=== PATIENT | female | born 1960 | race Caucasian/White ===

== ENCOUNTER 2021-07-12 22:24 | Emergency (ER) | payer OTHER ==
[2021-07-12 23:58] LABS: Absolute Lymphocytes (CBC) 2.8 K/uL (0.7-4.9); Basophils % 0.5 % (0-1.3); Hematocrit 32.1 % (36.0-45.0); Lymphocytes % 27.4 % (15.3-44.8); MPV 8.4 fL (7.6-11.3); RBC Red Blood Cell Count 3.55 M/uL (3.86-4.86)
[2021-07-13 00:09] LABS: BUN Blood Urea Nitrogen 17 mg/dL (7-18); Bicarbonate 24 mmol/L (21-32); Glucose Level 113 mg/dL (74-106); Sodium Level 133 mmol/L (136-145)
--- NOTE | 2021-07-13 00:09 | EDPHYS ---
Physician Documentation [facility] Name: Katina Olmstead Age: 61 yrs Sex: Female : 1960 Arrival Date: 07/12/2021 Time: 22:31 Bed 5 Private MD: ED Physician Karri Sawyer HPI: 07/12 22:31 This 61 yrs old Female presents to ER via Unassigned with complaints of Head ps1 injury. 22:31 Patient states that she fell down unknown number of steps will going down stairs. She ps1 has a moderate size laceration to the right side of the head that was brought in by EMS pressure dressing. She additionally complains of right shoulder pain as well as right leg pain. No obvious signs of deformity. There is mild contusions localized to the anterior and posterior aspects of the right shoulder. Pain is rated as moderate. Maintains full range of motion.. Historical: - Allergies: 22:49 No Known Allergies; df1 - Home Meds: 22:49 None [Active]; df1 - PMHx: 22:49 None; df1 - PSHx: 22:49 None; df1 - Code Status:: Full code. - Immunization history:: Adult Immunizations up to date, Client reports having NOT received the Covid vaccine. - Social history:: Smoking status: Patient denies any tobacco usage or history of. ROS: 22:31 Constitutional: Negative for fever, chills, and weight loss, Eyes: Negative for injury, ps1 pain, redness, and discharge, ENT: Negative for injury, pain, and discharge, Neck: Negative for injury, pain, and swelling, Cardiovascular: Negative for chest pain, palpitations, and edema, Respiratory: Negative for shortness of breath, cough, wheezing, and pleuritic chest pain, Abdomen/GI: Negative for abdominal pain, nausea, vomiting, diarrhea, and constipation, Neuro: Negative for headache, weakness, numbness, tingling, and seizure. 22:31 Skin: Positive for laceration(s), of the right quaker. Exam: 22:31 Constitutional: This is a well developed, well nourished patient who is awake, alert, ps1 and in no acute distress. 22:31 Cardiovascular: Regular rate and rhythm. No gallops, murmurs, or rubs. Normal PMI, no JVD. No pulse deficits. Respiratory: Lungs have equal breath sounds bilaterally, clear to auscultation and percussion. No rales, rhonchi or wheezes noted. No increased work of breathing, no retractions or nasal flaring. Abdomen/GI: Soft, non-tender, with normal bowel sounds. No distension or tympany. No guarding or rebound. No evidence of tenderness throughout. Skin: Warm, dry with normal turgor. Normal color with no rashes, no lesions, and no evidence of cellulitis. Neuro: Awake and alert, GCS 15, oriented to person, place, time, and situation. Cranial nerves II-XII grossly intact. Sensory grossly intact. 22:31 Head/face: Noted is a laceration(s), that is linear, 5 cm(s), of the right quaker. 22:31 Chest/axilla: Inspection: ecchymosis, that is moderate, of the right lateral posterior chest and right lateral anterior chest 22:31 Musculoskeletal/extremity: Extremities: grossly normal except: noted in the right leg: pain, ROM: no acute changes, Circulation is intact in all extremities. Sensation intact. Vital Signs: 22:43 BP 148 / 120; Pulse 79; Resp 20; Temp 97.8(TE); Pulse Ox 100% on R/A; Weight 81.65 kg; df1 Height 4 ft. 10 in. (147.32 cm); Pain 10/10; 22:50 BP 140 / 87; Pulse 84; Resp 18; Pulse Ox 100% on R/A; Pain 4/10; wg 07/13 00:35 BP 132 / 80; Pulse 78; Resp 18; Pulse Ox 99% on R/A; Pain 2/10; wg 07/12 22:43 Body Mass Index 37.62 (81.65 kg, 147.32 cm) df1 Gisele Coma Score: 07/12 22:50 Eye Response: spontaneous(4). Verbal Response: oriented(5). Motor Response: obeys wg commands(6). Total: 15. Trauma Score (Adult): 22:50 Eye Response: spontaneous(1); Verbal Response: oriented(1); Motor Response: obeys commands(2); Systolic BP: > 89 mm Hg(4); Respiratory Rate: 10 to 29 per min(4); Gisele Score: 15; Trauma Score: 12 Laceration: 07/13 00:05 Wound Repair of 3cm ( 1.2in ) subcutaneous laceration to right quaker. Distal ps1 neuro/vascular/tendon intact. Anesthesia: Local anesthetic administered with 1% lidocaine. Skin closed with 2 Perry using simple sutures and sterile technique. Patient tolerated well. MDM: 07/12 22:36 Patient medically screened. ps1 07/13 00:05 Differential diagnosis: Contusion of Laceration of Intracranial bleed-. Data reviewed: ps1 vital signs, lab test result(s), radiologic studies, and as a result, I will discharge patient. Counseling: I had a detailed discussion with the patient and/or guardian regarding: the historical points, exam findings, and any diagnostic results supporting the discharge/admit diagnosis, lab results, radiology results, the need for outpatient follow up, staple removal. 07/12 22:35 Order name: Basic Metabolic Panel; Complete Time: 00:11 ps1 07/12 22:35 Order name: CBC with Diff; Complete Time: 00:04 ps1 07/12 22:35 Order name: CT Head C Spine ps1 07/12 22:35 Order name: XRAY Chest (1 view) ps1 07/12 22:35 Order name: XRAY Pelvis ps1 07/12 22:35 Order name: Labs collected and sent; Complete Time: 23:36 ps1 Administered Medications: No medications were administered Disposition Summary: 07/13/21 00:09 Discharge Ordered Location: Home ps1 Problem: new ps1 Symptoms: have improved ps1 Condition: Stable ps1 Diagnosis - Head laceration ps1 - right shoulder contusion ps1 - right leg pain ps1 Followup: ps1 - With: Private Physician - When: 7 - 10 days - Reason: Recheck today's complaints, Continuance of care, Staple/Suture removal, Re-evaluation by your physician Followup: ps1 - With: Emergency Department - When: As needed - Reason: Trouble breathing, Worsening of condition Discharge Instructions: - Discharge Summary Sheet ps1 - Laceration Care, Adult, [id number] ps1 Forms: - Medication Reconciliation Form ps1 - Thank You Letter ps1 - Antibiotic Education ps1 - Prescription Opioid Use ps1 Prescriptions: - methocarbamol 750 mg Oral tablet - take 1 tablet by ORAL route every 4 hours; 20 tablet; Refills: 0, Product ps1 Selection Permitted - Anaprox DS 550 mg Oral Tablet - take 1 tablet by ORAL route every 12 hours As needed; 20 tablet; Refills: 0, ps1 Product Selection Permitted Signatures: Dispatcher Karri Porter MD MD ps1 Tiburcio Hernandez RN wg Angelica Rosenberg df1
--- NOTE | 2021-07-13 00:09 | ER ---
Nurse's Notes [facility] Name: Katina Olmstead Age: 61 yrs Sex: Female : 1960 Arrival Date: 07/12/2021 Time: 22:31 Bed 5 Private MD: Diagnosis: Head laceration;right shoulder contusion;right leg pain Presentation: 07/12 22:43 Onset of symptoms was July 12, 2021 at 22:00. df1 22:43 Method Of Arrival: EMS: [facility] df1 22:43 Acuity: JADON 2 df1 22:50 Note EMS states, pt drank 6 beers today. df1 22:50 Chief complaint: EMS states: Pt found at bottom of stairwell after fall. Unknown how wg far she fell. Unknown LOC. Per EMS, large avulsion noted to back right head. Dressing to head soaked in blood. Pt states 10/10 pain to head. Coronavirus screen: Vaccine status: Patient reports being unvaccinated. Client denies travel out of the [place] in the last 14 days. At this time, the client does not indicate any symptoms associated with coronavirus-19. The client denies any previous COVID testing. Care prior to arrival: None. Ebola Screen: Patient negative for fever greater than or equal to 101.5 degrees Fahrenheit, and additional compatible Ebola Virus Disease symptoms Patient denies exposure to infectious person. No symptoms or risks identified at this time. Mechanism of Injury: Fall from standing position. Initial Sepsis Screen: Does the patient meet any 2 criteria? No. Patient's initial sepsis screen is negative. Does the patient have a suspected source of infection? No. Patient's initial sepsis screen is negative. Activity prior to arrival: 6 beers. Risk Assessment: Do you want to hurt yourself or someone else? Patient reports no desire to harm self or others. Triage Assessment: 22:51 General: Appears distressed, uncomfortable, Behavior is calm, cooperative, anxious. df1 Pain: Complains of pain in scalp. Trauma Activation: Alert Physician: ED Physician; Name: Vj; Notified At: ; Arrived At: Physician: General Surgeon; Name: ; Notified At: ; Arrived At: Physician: Radiology; Name: ; Notified At: ; Arrived At: Physician: Respiratory; Name: ; Notified At: ; Arrived At: Physician: Lab; Name: ; Notified At: ; Arrived At: Historical: - Allergies: 22:49 No Known Allergies; df1 - Home Meds: 22:49 None [Active]; df1 - PMHx: 22:49 None; df1 - PSHx: 22:49 None; df1 - Code Status:: Full code. - Immunization history:: Adult Immunizations up to date, Client reports having NOT received the Covid vaccine. - Social history:: Smoking status: Patient denies any tobacco usage or history of. Screenin:50 Fall risk At risk due to injury, prior history of falls. wg 22:51 Abuse screen: Denies threats or abuse. Nutritional screening: No deficits noted. df1 Tuberculosis screening: No symptoms or risk factors identified. Fall Risk No secondary diagnosis (0 pts). Ambulatory Aid- None/Bed Rest/Nurse Assist (0 pts). Gait- Normal/Bed Rest/Wheelchair (0 pts) Mental Status- Oriented to own ability (0 pts). Primary Survey: 22:50 NO uncontrolled hemorrhage observed. A: The patient is alert. Airway: patent, No wg supplemental oxygen in use on arrival. Oral cavity: clear, gag reflex present, Trachea midline. Breathing/Chest: Respiratory pattern: regular, Respiratory effort: spontaneous, unlabored, Breath sounds: clear, Chest inspection: symmetrical rise and fall of the chest. Circulation: Cardiac rhythm: sinus rhythm Pulses: palpable right radial artery, right posterior tibial artery, left radial artery and left posterior tibial artery. Disability Alert. Exposure/Environment: All clothing and personal items were removed. Assessment: 22:50 General: Appears uncomfortable, well developed, Smells of alcohol. Neuro: Level of wg Consciousness is awake, alert, obeys commands, Oriented to person, place, time, situation, Appropriate for age Boiler Operator are equal bilaterally Moves all extremities. Speech is normal, Slightly slurred, similar seen in intoxicated people. Cardiovascular: No deficits noted. Respiratory: No deficits noted. Airway is patent Trachea midline Respiratory effort is even, unlabored, Respiratory pattern is regular, symmetrical. GI: No deficits noted. : No deficits noted. Injury Description: Per EMS there is an avulsion to the right/rear area of head, wrapped with gauge. Dr. Sawyer at bedside and will unwrap after scans. 10/16 00:35 Reassessment: No changes from previously documented assessment. Patient is alert, wg oriented x 3, equal unlabored respirations, skin warm/dry/pink. Head cleaned up. Two viraj look clean and dry. Pt ambulated to BR with little assistance. with patient. Patient states symptoms have improved. Vital Signs: 07/12 22:43 BP 148 / 120; Pulse 79; Resp 20; Temp 97.8(TE); Pulse Ox 100% on R/A; Weight 81.65 kg; df1 Height 4 ft. 10 in. (147.32 cm); Pain 10/; 22:50 BP 140 / 87; Pulse 84; Resp 18; Pulse Ox 100% on R/A; Pain 4/10; wg 07/13 00:35 BP 132 / 80; Pulse 78; Resp 18; Pulse Ox 99% on R/A; Pain 2/10; wg 07/12 22:43 Body Mass Index 37.62 (81.65 kg, 147.32 cm) df1 Gisele Coma Score: 07/12 22:50 Eye Response: spontaneous(4). Verbal Response: oriented(5). Motor Response: obeys wg commands(6). Total: 15. Trauma Score (Adult): 22:50 Eye Response: spontaneous(1); Verbal Response: oriented(1); Motor Response: obeys wg commands(2); Systolic BP: > 89 mm Hg(4); Respiratory Rate: 10 to 29 per min(4); Gisele Score: 15; Trauma Score: 12 ED Course: 22:31 Patient arrived in ED. tt3 22:31 Karri Sawyer MD is Attending Physician. ps1 22:33 Tiburcio Hernandez, MARGO is Primary Nurse. wg 22:49 Triage completed. df1 22:49 XRAY Chest (1 view) In Process Unspecified. EDMS 22:50 XRAY Pelvis In Process Unspecified. EDMS 22:50 Patient maintains SpO2 saturation greater than 95% on room air. wg 22:52 Arm band placed on right wrist. df1 22:52 Patient has correct armband on for positive identification. Placed in gown. Bed in low df1 position. Call light in reach. Side rails up X 1. Adult w/ patient. 23:00 CT Head C Spine In Process Unspecified. EDMS 23:00 Missed attempt(s): 22 gauge in right forearm. wg 23:36 Basic Metabolic Panel Sent. wg 23:36 CBC with Diff Sent. 07/13 01:17 IV discontinued, intact, bleeding controlled, No redness/swelling at site. Pressure wg dressing applied. Administered Medications: No medications were administered Outcome: 00:09 Discharge ordered by MD. ps1 01:17 Discharged to home ambulatory, with significant other. wg 01:17 Condition: stable 01:17 Discharge instructions given to patient, significant other, Instructed on discharge instructions, follow up and referral plans. no drinking with medication, medication usage, Demonstrated understanding of instructions, follow-up care, medications. 01:18 Patient left the ED. wg Signatures: Dispatcher [employer] EDMS Karri Sawyer MD MD ps1 Trim, New tt3 Tiburcio Hernandez, MARGO Angelica Rosenberg df1 Corrections: (The following items were deleted from the chart) 07/12 22:50 22:43 Chief complaint: EMS states: Pt found at bottom of stairwell after fall. Unknown df1 how far she fell. Unknown LOC. Per EMS, large avulsion noted to back right head. Dressing to head soaked in blood. Pt states 10/10 pain to head. df1 22:50 22:43 Coronavirus screen: Vaccine status: Patient reports being unvaccinated. Client df1 denies travel out of the [place] in the last 14 days. At this time, the client does not indicate any symptoms associated with coronavirus-19. The client denies any previous COVID testing. df1 23:39 23:20 General: Appears uncomfortable, well developed, Smells of alcohol, [facility] :39 23:20 Neuro: Level of Consciousness is awake, alert, obeys commands, Oriented to person, place, time, situation, Appropriate for age Boiler Operator are equal bilaterally Moves all extremities. Speech is normal, Slightly slurred, similar seen in intoxicated people. :39 23:22 Cardiovascular: No deficits noted. [facility] :39 23:22 Respiratory: No deficits noted. Airway is patent Trachea midline Respiratory wg effort is even, unlabored, Respiratory pattern is regular, symmetrical, :39 23:22 GI: No deficits noted. [facility] : 23:22 : No deficits noted. [facility] :39 23:22 Injury Description: Per EMS there is an avulsion to the right/rear area of head, wg wrapped with gauge. Dr. Zabala at bedside and will unwrap after scans. : 22:43 Ebola Screen: Patient negative for fever greater than or equal to 101.5 degrees wg Fahrenheit, and additional compatible Ebola Virus Disease symptoms Patient denies exposure to infectious person. No symptoms or risks identified at this time. df1 :40 22:43 Risk Assessment: Do you want to hurt yourself or someone else? Patient reports no wg desire to harm self or others. df1 :40 22:43 Initial Sepsis Screen: Does the patient meet any 2 criteria? No. Patient's wg initial sepsis screen is negative. Does the patient have a suspected source of infection? No. Patient's initial sepsis screen is negative. df1 :40 22:43 Coronavirus screen: Vaccine status: Patient reports being unvaccinated. Client wg denies travel out of the [place] in the last 14 days. At this time, the client does not indicate any symptoms associated with coronavirus-19. The client denies any previous COVID testing. df1 :40 22:43 Chief complaint: EMS states: Pt found at bottom of stairwell after fall. Unknown wg how far she fell. Unknown LOC. Per EMS, large avulsion noted to back right head. Dressing to head soaked in blood. Pt states 10/10 pain to head. df1 :40 23:20 Care prior to arrival: None. [facility] : 23:20 Mechanism of Injury: Fall from standing position. [facility] 23:20 Activity prior to arrival: 6 beers [facility] : 23:20 Trauma Activation: Alert; ED Physician Vj [facility] 23:23 NO uncontrolled hemorrhage observed [facility] : 23:23 A: The patient is alert. Airway: patent, No supplemental oxygen in use on arrival. Oral cavity: clear, gag reflex present, Trachea midline. 23:23 Breathing/Chest: Respiratory pattern: regular, Respiratory effort: spontaneous, wg unlabored, Breath sounds: clear, Chest inspection: symmetrical rise and fall of the chest, 23:23 Circulation: Cardiac rhythm: sinus rhythm Pulses: palpable right radial artery, wg right posterior tibial artery, left radial artery and left posterior tibial artery. 23:23 Disability Alert [facility] 23:23 Exposure/Environment: All clothing and personal items were removed. [facility] 23:23 [place] Score=15, Trauma Score=12, [facility] 23:23 GCS: 15, [facility] : 23:26 BP 140 / 87; Pulse 84bpm; Resp 18bpm; Pulse Ox 100% RA; Pain 4/10; [facility] 23:23 Fall risk At risk due to injury, prior history of falls, [facility] 23:23 Patient maintains SpO2 saturation greater than 95% on room air. [facility] 23:23 Missed attempt(s): 22 gauge in right forearm. [facility]
[2021-07-13 01:24] VITALS: TEMP 97.8
[2021-07-13 01:27] VITALS: BP 132/80; O2SAT 99
--- NOTE | 2021-07-13 07:31 | RAD REPORT ---
EXAM DESCRIPTION: RAD - Pelvis - 07/12/2021 10:51 pm CLINICAL HISTORY: BLUNT TRAUMA, fall downstairs COMPARISON: No comparisons TECHNIQUE: AP imaging of the pelvis was obtained. FINDINGS: No pelvic fracture identified. Pubic symphysis and SI joints are normal range. No hip join t or proximal femur abnormality seen. Soft tissues are unremarkable. IMPRESSION: Negative pelvis
--- NOTE | 2021-07-13 07:32 | RAD REPORT ---
EXAM DESCRIPTION: RAD - Chest Single View - 07/12/2021 10:51 pm CLINICAL HISTORY: BLUNT CHEST TRAUMA, fall down stairs COMPARISON: October 2018 TECHNIQUE: AP portable chest image was obtained 07/12/2021 10:51 pm . FINDINGS: Lung volumes are low. No pulmonary contusion identified. No acute lung parenchymal process seen. Cardiac silhouette is enlarged by shallow inspiration, portable technique and body habitus aff ects. Acute failure or volume overload are not suspected. No measurable pleural effusion and no pneumothorax. No acute bony abnormality seen. No acute aortic findings suspected. IMPRESSION: No acute cardiopulmonary process. Ongoing concerns for rib fracture can be addressed with dedicated imaging.
--- NOTE | 2021-07-13 15:09 | RAD REPORT ---
EXAM DESCRIPTION: CT - CTHCSPWOC - 07/13/2021 6:49 am COMPARISON: None. CLINICAL HISTORY: [facility] MAIN fall. head injury TECHNIQUE: Axial images were obtained from skull base to vertex without intravenous contrast. Imag es viewed on bone and brain windows. Multiplanar reformats were performed. Automated exposure contr ol was utilized on this examination as a dose lowering technique. FINDINGS: Brain parenchyma, ventricles, dura, meninges, and extra-axial spaces: Mild frontal predomi nant cerebral and cerebellar volume loss. No abnormal attenuation of brain parenchyma is present. No acute intracranial hemorrhage or abnormal extra-axial fluid collections are present. Vascular structures: No hyperdense arteries or veins. Calvarium, mastoid air cells, paranasal sinuses and orbits: The calvarium is normal. A right parietal scalp hematoma measures up to 1.1 cm in thickness with adjacent laceration. The mastoid air cells ar e clear. Visualized paranasal sinuses are unremarkable. Orbital structures are unremarkable. EXAM DESCRIPTION: CT Cervical Spine COMPARISON: None. CLINICAL HISTORY: [facility] MAIN fall. head injury TECHNIQUE: Axial CT images were obtained through the entire cervical spine without contrast. Sagit lou and coronal reconstructions are provided. Automated exposure control was utilized on this examina tion as a dose lowering technique. FINDINGS: Vertebrae: Vertebral statures and alignment are normal. No acute fracture, dislocation o r destructive osseous process is present. Spinal canal, foramina, and facet joints: No significant spinal canal or foraminal stenoses. No significant facet arthropathy. Paraspinous soft-tissues: Normal. Thyroid: Normal. Other Findings: None. IMPRESSION: HEAD IMPRESSION: 1. No acute intracranial abnormality. 2. Right parietal scalp laceration and contusion. 3. Mild senescent changes. C-SPINE IMPRESSION: No acute findings of the cervical spine. Electronically signed by: Aston Garcia MD 07/12/2021 11:28 PM CDT Due to temporary technical issues with the PACS/Fluency reporting system, reports are being signed by the in house radiologists without review as a courtesy to insure prompt reporting. The interpreting radiologist is fully responsible for the content of the report
== END 2021-07-13 01:18 | disposition home or self-care (01) ==
LOC: ER 22:24
PROC: 0JQ10ZZ Repair Face Subcutaneous Tissue and Fascia, Open Approach (ICD-10-PCS; principal; 2021-07-13)
DX: S01.81XA Laceration without foreign body of other part of head, initial encounter (principal); S40.011A Contusion of right shoulder, initial encounter; M79.604 Pain in right leg; W10.8XXA Fall (on) (from) other stairs and steps, initial encounter
CPT/HCPCS: 36415; 70450; 71045; 72125; 72170; 80048; 85025; 99284; G0390